=== PATIENT | female | born 1960 | race African-American/Black ===

== ENCOUNTER → 2018-06-01 | Outpatient (CLI) | payer OTHER ==
[~2018-06-01] MED LIST: ALLEGRA30 MG; ATIVAN0.5 MG PO; CARDURA1 MG PO; LISINOPRIL20 MG PO; ZOCOR 10 MG TAB10 MG; ZOFRAN 4 MG ORAL4 M1 DIS
--- NOTE | 2018-06-01 16:19 | 2DMMODE ---
[place] [address] 2 D/M-MODE ECHOCARDIOGRAM Name: LATANYA VAZQUEZ Room: [facility]#: [id number] Admission: 06/01/18 Attend Phys: Maryann Quinones Discharge: Date of : 58 Date of Service: 06/01/18 1619 Report #: [id number] THIS REPORT FOR: //name// APPROVED REPORT Study performed: 06/01/2018 15:07:02 EXAM: Comprehensive 2D, Doppler, and color-flow Echocardiogram Patient Location: Out-Patient Status: routine BSA: 1.86 HR: 65 bpm BP: 135/85 mmHg Other Information Study Quality: Good Indications Murmur 2D Dimensions IVSd: 10.04 (7-11mm) LVOT Diam: 19.58 (18-24mm) LVDd: 45.12 mm PWd: 9.20 (7-11mm) Ascending Ao: 33.45 (22-36mm) LVDs: 23.03 (25-40mm) Aortic Root: 25.47 mm Volumes Left Atrial Volume (Systole) LA ESV Index: 19.80 mL/m2 Aortic Valve AoV Peak Robert.: 1.82 m/s AO Peak Gr.: 13.27 mmHg LVOT Max P.13 mmHg AO Mean Gr.: 6.52 mmHg LVOT Mean P.97 mmHg LVOT Max V: 1.24 m/s AO V2 VTI: 35.76 cm LVOT Mean V: 0.79 m/s JOSÉ MIGUEL (VTI): 2.53 cm2 LVOT V1 VTI: 29.99 cm Mitral Valve E/A Ratio: 0.92 MV Decel. Time: 219.63 ms MV E Max Robert.: 1.06 m/s MV PHT: 63.69 [place] [address] 2 D/M-MODE ECHOCARDIOGRAM Name: LATANYA VAZQUEZ Room: [facility]#: [id number] Admission: 06/01/18 Attend Phys: Maryann Quinones Discharge: Date of : 58 Date of Service: 06/01/18 1619 Report #: [id number] MVA (PHT): 3.45 cm2 TDI E/Lateral E': 13.25 E/Medial E': 15.14 Medial E' Robert.: 0.07 m/s Lateral E' Robert.: 0.08 m/s Pulmonary Valve PV Peak Robert.: 1.06 m/s PV Peak Gr.: 4.50 mmHg Tricuspid Valve RAP Estimate: 5.00 mmHg TR Peak Gr.: 24.14 mmHg RVSP: 29.14 mmHg PA Pressure: 29.14 mmHg Left Ventricle The left ventricle is normal size. There is normal LV segmental wall motion. Mild concentric left ventricular hypertrophy. Left ventricular systolic function is normal. The left ventricular ejection fraction is within the normal range. LVEF is 60-65%. Grade I - abnormal relaxation pattern. Right Ventricle The right ventricle is normal size. The right ventricular systolic function is normal. Atria The left atrium size is normal. The right atrium size is normal. Aortic Valve The aortic valve is normal in structure. No aortic regurgitation is present. There is no aortic valvular stenosis. Mitral Valve The mitral valve is normal in structure. There is no mitral valve regurgitation noted. No evidence of mitral valve stenosis. Tricuspid Valve The tricuspid valve is normal in structure. Mild tricuspid regurgitation. Pulmonic Valve The pulmonary valve is normal in structure. Trace to [place] [address] 2 D/M-MODE ECHOCARDIOGRAM Name: LATANYA VAZQUEZ Room: [facility]#: [id number] Admission: 06/01/18 Attend Phys: Maryann Quinones Discharge: Date of : 58 Date of Service: 06/01/18 1619 Report #: [id number] Great Vessels The aortic root is normal in size. IVC is normal in size and collapses >50% with inspiration. Pericardium Trace pericardial effusion. <Conclusion> The left ventricle is normal size. Mild concentric left ventricular hypertrophy. Left ventricular systolic function is normal. The left ventricular ejection fraction is within the normal range. LVEF is 60-65%. Grade I - abnormal relaxation pattern. The right ventricle is normal size. The left atrium size is normal. The aortic valve is normal in structure. The mitral valve is normal in structure. The tricuspid valve is normal in structure. IVC is normal in size and collapses >50% with inspiration. Trace pericardial effusion. There is normal LV segmental wall motion. <ELECTRONICALLY SIGNED> By: Pro Nunez MD, [facility] 06/01/18 1619 [id number] Pro Nunez MD, FACC /INF
== END ==
LOC: M.CRD 14:51
DX: I51.7 Cardiomegaly (principal); R01.1 Cardiac murmur, unspecified